=== PATIENT | female | born 1980 | race Caucasian/White ===

== ENCOUNTER 2022-03-08 11:14 | Outpatient (CLI) | payer BC | END 2022-03-08 11:15 | disposition home or self-care (01) | LOC: CSHLAB 11:14 | PROVIDERS: ATTEND Internal Medicine Gastroenterology | DX: Z20.822 Contact with and (suspected) exposure to COVID-19 (principal); R10.9 Unspecified abdominal pain; K62.5 Hemorrhage of anus and rectum | CPT/HCPCS: 87811 ==

== ENCOUNTER 2022-03-13 07:44 | Day surgery (SDC) | payer BC ==
[2022-03-09 15:57] VITALS: BMI 35.5
[2022-03-13] MEDS ORDERED: Lidocaine 2% MPF 10 ML AMP (For Epidural Use) ONE (09:03)
[2022-03-13] MEDS ORDERED: PROPOFOL 40 ML ONE (09:03)
[2022-03-13] MEDS ORDERED: Lidocaine 1% MPF 2 ML VIAL ONE (09:14)
[2022-03-13] MEDS ORDERED: HYDROmorphone 0.5 MG/0.5 ML SYRINGE ONE (09:19)
[2022-03-13] MEDS ORDERED: Midazolam HCl 2 mg/2 ml Vial ONE (09:22)
[2022-03-13] MEDS ORDERED: PROPOFOL 20 ML ONE ×2 (09:49→09:54)
== END 2022-03-13 10:32 | disposition home or self-care (01) ==
LOC: CSHSDC 07:44
PROVIDERS: ATTEND Internal Medicine Gastroenterology
PROC: 0DB68ZZ Excision of Stomach, Via Natural or Artificial Opening Endoscopic (ICD-10-PCS; principal; 2022-03-13)
PROC: 0DJD8ZZ Inspection of Lower Intestinal Tract, Via Natural or Artificial Opening Endoscopic (ICD-10-PCS; principal; 2022-03-13)
DX: K31.7 Polyp of stomach and duodenum (principal); K62.5 Hemorrhage of anus and rectum; K44.9 Diaphragmatic hernia without obstruction or gangrene; K21.9 Gastro-esophageal reflux disease without esophagitis; R10.13 Epigastric pain; R11.0 Nausea; K64.9 Unspecified hemorrhoids; I10 Essential (primary) hypertension; E11.9 Type 2 diabetes mellitus without complications; F32.A Depression, unspecified; E78.5 Hyperlipidemia, unspecified; Z20.822 Contact with and (suspected) exposure to COVID-19
CPT/HCPCS: 88305; J1170; J2250; J2704